=== PATIENT | male | born 1995 | race Two or more races ===

== ENCOUNTER 2018-06-01 13:08 | Emergency (ER) | payer OTHER ==
[~2018-06-01] VITALS: Ht 175.3 cm; Wt 72.6 kg
[2018-06-01 13:16] VITALS: BP 127/74
[2018-06-01] MEDS ORDERED: DIAZEPAM 5 MG TABLET ONE (14:08)
[2018-06-01] MEDS ORDERED: KETOROLAC TROMETHAMINE INJ 30 MG/ML VIAL ONE (14:08)
[2018-06-01] MEDS ORDERED: KETOROLAC TROMETHAMINE INJ 60 MG/2 ML VIAL IM ONE (14:30)
[2018-06-01] MEDS ORDERED: DIAZEPAM 10 MG TABLET PO ONE (14:30)
== END 2018-06-01 15:09 | disposition home or self-care (01) ==
LOC: ER 13:12
DX: S39.012A Strain of muscle, fascia and tendon of lower back, initial encounter (principal); M62.830 Muscle spasm of back; X58.XXXA Exposure to other specified factors, initial encounter; Y93.89 Activity, other specified; Y92.89 Other specified places as the place of occurrence of the external cause; Y99.0 Civilian activity done for income or pay
CPT/HCPCS: 96372; 99283; A4606; J1885; Z7610